=== PATIENT | male | born 1995 ===

== ENCOUNTER → 2024-04-09 | Outpatient (REF) | payer SELFPAY ==
[2024-04-09 17:57] LABS: Trichomonas vaginalis (AMP) NOT DETECTED (NEGATIVE)
[2024-04-09 18:21] LABS: GC DNA AMPLIFICATION NEGATIVE (NEGATIVE)
[2024-04-09 18:39] LABS: HIV 1&2 SCREEN NEGATIVE (NEGATIVE)
== END ==
LOC: M LABWUC 16:16
PROVIDERS: ATTEND Physician Assistant
DX: R35.0 Frequency of micturition (principal); Z20.2 Contact with and (suspected) exposure to infections with a predominantly sexual mode of transmission